=== PATIENT | female | born 1965 | race Caucasian/White ===

== ENCOUNTER 2019-12-27 10:19 | Emergency (ER) | payer OTHER ==
[~2019-12-27] VITALS: Ht 165.1 cm; Wt 78.9 kg
[2019-12-27 10:26] VITALS: Ht 165.1 cm; Wt 78.9 kg
[2019-12-27 13:14] VITALS: BP 138/74
== END 2019-12-27 13:14 | disposition home or self-care (01) ==
LOC: ED 10:19
DX: S22.42XA Multiple fractures of ribs, left side, initial encounter for closed fracture (principal); M54.6 Pain in thoracic spine; I10 Essential (primary) hypertension; M79.7 Fibromyalgia; Z98.890 Other specified postprocedural states; W50.0XXA Accidental hit or strike by another person, initial encounter; Y93.89 Activity, other specified; Y92.34 Swimming pool (public) as the place of occurrence of the external cause; Y99.8 Other external cause status
CPT/HCPCS: J7030